=== PATIENT | female | born 1955 | race Caucasian/White ===

== ENCOUNTER 2016-12-01 15:41 | Emergency (ER) | payer MEDICAID ==
[2016-12-01] MEDS ORDERED: KETOROLAC 30 MG/ML VIAL ONE (17:16)
[2016-12-01] MEDS ORDERED: ORPHENADRINE 60 MG/2 ML AMP ONE (18:01)
== END 2016-12-01 20:14 | disposition home or self-care (01) ==
LOC: ER 15:41
DX: J20.9 Acute bronchitis, unspecified (principal); N30.00 Acute cystitis without hematuria; F17.210 Nicotine dependence, cigarettes, uncomplicated
CPT/HCPCS: 36415; 71020; 71250; 80053; 80307; 81001; 82553; 83880; 84484; 85025; 87077; 87088; 87186; 96374